=== PATIENT | male | born 1965 | race Caucasian/White ===

== ENCOUNTER 2017-05-30 21:55 | Emergency (ER) | payer BC, OTHER ==
[2017-05-30 23:00] LABS: #Eosinphils 0.1 thou/uL (0.0-0.7); #Lymphocytes 1.5 thou/uL (1.20-3.40); #Monocytes 0.5 thou/uL (0.11-0.59); #Neutrophils 4.4 thou/uL (1.40-6.50); %Basophils 0.4 % (0.0-1.0); %Eosinophils 1.3 % (0.0-10.0); %Lymphocytes 23.6 % (21.0-51.0); %Monocytes 7.4 % (0.0-10.0); Hematocrit 39.1 % (42.0-52.0); Mean Platelet Volume 8.1 fL (7.4-10.4); Red Blood Cell (RBC) Count 4.27 mill/uL (4.70-6.10); White Blood Cell (WBC) Count 6.5 thou/uL (4.8-10.8)
[2017-05-30 23:07] LABS: Bilirubin Negative (Negative); Blood, Urine Negative (Negative); Glucose, Urine (Dipstick) Negative (Negative); Ketone, Urine Negative (Negative); Nitrite Negative (Negative); Protein, Urine (Dipstick) Negative (Neg-Trace); Urobilinogen 0.2 mg/dL (0.2-1.0)
[2017-05-30 23:27] LABS: ALT (SGPT) 21 U/L (8-55); AST (SGOT) 17 U/L (5-34); Alkaline Phosphatase 74 U/L (40-150); Anion Gap 12 mmol/L (10-20); BUN (Urea Nitrogen) 14 mg/dL (8.4-25.7); Bilirubin, Total 0.3 mg/dL (0.2-1.2); CK (CPK) 263 U/L (30-200); Calc. Creatinine Clearance 0 mL/min (70-130); Calcium 9.2 mg/dL (7.8-10.44); Carbon Dioxide 26 mmol/L (22-29); Chloride 104 mmol/L (98-107); Estimated GFR-MDRD 90; Globulin 2.8 g/dL (2.4-3.5); Lipase 19 U/L (8-78); Magnesium 2.2 mg/dL (1.6-2.6); Protein, Total 7.1 g/dL (6.0-8.3)
[2017-05-30 23:31] LABS: Troponin I Less than 0.010 ng/mL (< 0.028)
--- NOTE | 2017-05-31 07:25 | RAD ---
1 VIEW CHEST: Date: 05/30/17 HISTORY: Hypertension. Chest pain. COMPARISON: None. FINDINGS: Portable upright chest demonstrates a normal cardiac silhouette. Pulmonary vessels and hilum are norm al. No consolidation or mass. No pneumothorax or osseous abnormalities. IMPRESSION: No acute cardiopulmonary process. POS: PPP
--- NOTE | 2017-06-25 20:53 | EKG ---
Test Reason : HYPERTENSION Blood Pressure : / mmHG Vent. Rate : 089 BPM Atrial Rate : 089 BPM P-R Int : 148 ms QRS Dur : 086 ms QT Int : 360 ms P-R-T Axes : 063 050 043 degrees QTc Int : 438 ms Normal sinus rhythm Normal ECG Confirmed by RUFINO MARIA, ATMEKA ([id number]), news editor WILFRIDO RIZZO ([id number] on 06/25/2017 8:52:29 PM Referred By: RUFINO Confirmed By:TAMEKA JOY MD
== END 2017-05-31 01:12 | disposition home or self-care (01) ==
LOC: ERS 21:55
DX: R00.0 Tachycardia, unspecified (principal); K21.9 Gastro-esophageal reflux disease without esophagitis; I10 Essential (primary) hypertension; Z79.899 Other long term (current) drug therapy
CPT/HCPCS: 36415; 71010; 80053; 81003; 82550; 82553; 83690; 83735; 83880; 84443; 84484; 85025; 85379; 93005

== ENCOUNTER 2018-07-21 12:30 | Outpatient (CLI) | payer BC ==
--- NOTE | 2018-07-21 16:15 | NM ---
RADIONUCLIDE HEPATOBILIARY SCAN AND GALLBLADDER EJECTION FRACTION: Date: 07/21/18 HISTORY: Abdominal pain. Bloating and nausea. FINDINGS: Early images show physiologic uptake of radiotracer throughout the hepatic parenchyma. Gallbladder fi rst seen at 90 minutes. Uptake is evident within the small bowel at 59 minutes. After administration of 8 oz of fatty meal and replacement of CCK, there is progressive excretion of radiotracer from the gallbladder to the small bowel. Ejection fraction calculated at 48%. IMPRESSION: Normal hepatobiliary scan and gallbladder ejection fraction. POS: SUKHWINDER
== END 2018-07-21 12:31 | disposition home or self-care (01) ==
LOC: NM 12:30
PROVIDERS: ATTEND Internal Medicine
DX: R10.13 Epigastric pain (principal); R14.0 Abdominal distension (gaseous); R11.0 Nausea
CPT/HCPCS: 78227; A9537

== ENCOUNTER 2018-08-13 18:29 | Emergency (ER) | payer BC ==
[2018-08-13 19:42] LABS: #Eosinphils 0.2 thou/uL (0.0-0.7); #Lymphocytes 1.7 thou/uL (1.20-3.40); #Monocytes 0.5 thou/uL (0.11-0.59); #Neutrophils 4.9 thou/uL (1.40-6.50); %Basophils 0.5 % (0.0-1.0); %Eosinophils 3.1 % (0.0-10.0); %Lymphocytes 23.1 % (21.0-51.0); %Neutrophils 66.4 % (42.0-75.0); Hemoglobin 14.6 g/dL (14.0-18.0); Mean Corpuscular HGB CONC 34.2 g/dL (32.0-36.0); Mean Corpuscular Hemoglobin 30.4 pg (27.0-31.0); Mean Corpuscular Volume 88.9 fL (78.0-98.0); Mean Platelet Volume 9.1 fL (7.4-10.4); Platelet Count 203 thou/uL (130-400); RBC Distribution Width 10.9 % (11.5-14.5); Red Blood Cell (RBC) Count 4.79 mill/uL (4.70-6.10); White Blood Cell (WBC) Count 7.3 thou/uL (4.8-10.8)
[2018-08-13 20:10] LABS: ALT (SGPT) 27 U/L (8-55); AST (SGOT) 21 U/L (5-34); Albumin 4.7 g/dL (3.5-5.0); Alkaline Phosphatase 72 U/L (40-150); Anion Gap 14 mmol/L (10-20); BUN (Urea Nitrogen) 14 mg/dL (8.4-25.7); Bilirubin, Total 0.5 mg/dL (0.2-1.2); Calc. Creatinine Clearance 0 mL/min (70-130); Calcium 9.9 mg/dL (7.8-10.44); Carbon Dioxide 25 mmol/L (22-29); Chloride 104 mmol/L (98-107); Estimated GFR-MDRD 86; Globulin 2.5 g/dL (2.4-3.5); Glucose 94 mg/dL (70-105); Potassium 4.1 mmol/L (3.5-5.1); Protein, Total 7.2 g/dL (6.0-8.3); Sodium 139 mmol/L (136-145)
--- NOTE | 2018-08-13 20:38 | CT ---
CT BRAIN: HISTORY: Intermittent dizziness, lightheadedness, and palpitations, lasting up to an hour. TECHNIQUE: Noncontrast enhanced CT images of the brain obtained. FINDINGS: The brain is unremarkable. No evidence of intracranial masses, hemorrhages, strokes, or contusions s een. The ventricles are of normal size. IMPRESSION: Normal CT brain. POS: LUISANA
== END 2018-08-13 20:59 | disposition home or self-care (01) ==
LOC: MERGE 18:29 → ERS 18:29
DX: R42 Dizziness and giddiness (principal); K58.9 Irritable bowel syndrome, unspecified; I10 Essential (primary) hypertension; E78.5 Hyperlipidemia, unspecified; F41.9 Anxiety disorder, unspecified; Z79.899 Other long term (current) drug therapy
CPT/HCPCS: 36415; 70450; 80053; 84484; 85025; 85379; 93005

== ENCOUNTER 2018-10-09 12:53 | Emergency (ER) | payer BC ==
[2018-10-09 14:00] LABS: #Eosinphils 0.1 thou/uL (0.0-0.7); #Lymphocytes 1.4 thou/uL (1.20-3.40); #Monocytes 0.5 thou/uL (0.11-0.59); #Neutrophils 4.3 thou/uL (1.40-6.50); %Basophils 0.7 % (0.0-1.0); %Eosinophils 1.3 % (0.0-10.0); %Lymphocytes 22.5 % (21.0-51.0); %Monocytes 7.4 % (0.0-10.0); %Neutrophils 68.1 % (42.0-75.0); Hemoglobin 13.1 g/dL (14.0-18.0); Mean Corpuscular HGB CONC 33.2 g/dL (32.0-36.0); Mean Corpuscular Hemoglobin 30.3 pg (27.0-31.0); Mean Corpuscular Volume 91.5 fL (78.0-98.0); Mean Platelet Volume 9.5 fL (7.4-10.4); Platelet Count 177 thou/uL (130-400); Red Blood Cell (RBC) Count 4.31 mill/uL (4.70-6.10); White Blood Cell (WBC) Count 6.3 thou/uL (4.8-10.8)
[2018-10-09 14:22] LABS: ALT (SGPT) 20 U/L (8-55); AST (SGOT) 16 U/L (5-34); Albumin 4.4 g/dL (3.5-5.0); Alkaline Phosphatase 67 U/L (40-150); Anion Gap 10 mmol/L (10-20); BUN (Urea Nitrogen) 14 mg/dL (8.4-25.7); Bilirubin, Total 0.6 mg/dL (0.2-1.2); Calc. Creatinine Clearance 0 mL/min (70-130); Calcium 9.2 mg/dL (7.8-10.44); Carbon Dioxide 29 mmol/L (22-29); Chloride 104 mmol/L (98-107); Estimated GFR-MDRD Greater than 90; Globulin 2.6 g/dL (2.4-3.5); Glucose 107 mg/dL (70-105); Potassium 3.8 mmol/L (3.5-5.1); Sodium 139 mmol/L (136-145)
--- NOTE | 2018-10-09 14:41 | CT ---
CT Brain WO Con History: [Nausea and weakness.] Comparison: CT brain on August 13, 2018 Findings: No acute hemorrhage or infarct. No midline shift or mass effect. Ventricular size and extra -axial CSF spaces are normal. The calvarium is intact. The paranasal sinuses and mastoids are clear. Impression: No acute intracranial abnormality.
--- NOTE | 2018-10-09 15:14 | RAD ---
CHEST 1 VIEW: Date: 10/09/18 HISTORY: Dyspnea. COMPARISON: 05/31/17. FINDINGS: Heart size and mediastinum are within normal limits. Lungs appear clear of any infiltrative process. No interval change. IMPRESSION: No active intrathoracic disease. POS: TPC
== END 2018-10-09 15:13 | disposition home or self-care (01) ==
LOC: ERS 12:53
DX: R11.0 Nausea (principal); R20.2 Paresthesia of skin; K21.9 Gastro-esophageal reflux disease without esophagitis; I10 Essential (primary) hypertension; K59.00 Constipation, unspecified; Z79.899 Other long term (current) drug therapy
CPT/HCPCS: 70450; 71045; 80053; 84484; 85025; 93005

== ENCOUNTER 2020-04-03 07:47 | Outpatient (CLI) | payer BC ==
--- NOTE | 2020-04-03 12:58 | NM ---
EXAM: Nuclear medicine gastric emptying COMPARISON: None HISTORY: Abdominal pain TECHNIQUE: A nuclear medicine gastric emptying exam was administered after administration of 2.2 mCi of technetium 99m sulfur colloid mixed with eggs. FINDINGS: No gastroesophageal reflux was seen during the examination. 30 minute emptying is 7%. 60 minutes emptying is 59%. 120 minute emptying is 83 %. 180 minute emptying is 96 % T1/2 of gastric emptying is 56 minutes. IMPRESSION: Normal gastric emptying exam
== END 2020-04-03 07:48 | disposition home or self-care (01) ==
LOC: NM 07:47
PROVIDERS: ATTEND Internal Medicine
DX: R10.13 Epigastric pain (principal); R11.0 Nausea
CPT/HCPCS: 78264; A9541

== ENCOUNTER 2020-12-16 19:00 | Outpatient (CLI) | payer BC | END 2020-12-16 19:01 | disposition home or self-care (01) | LOC: SLEEPLAB 19:00 | PROVIDERS: ATTEND Family Medicine | DX: G47.33 Obstructive sleep apnea (adult) (pediatric) (principal); R53.83 Other fatigue; R06.83 Snoring; G47.10 Hypersomnia, unspecified; G47.00 Insomnia, unspecified; I10 Essential (primary) hypertension | CPT/HCPCS: 95810 ==

== ENCOUNTER 2024-05-01 11:00 | Outpatient (CLI) | payer BC | END 2024-05-01 11:01 | disposition home or self-care (01) | LOC: PET 11:00 | PROVIDERS: ATTEND Radiology Radiation Oncology | DX: C61 Malignant neoplasm of prostate (principal); R91.8 Other nonspecific abnormal finding of lung field | CPT/HCPCS: 78815; A9552; A9595 ==

== ENCOUNTER 2025-01-18 09:35 | Outpatient (CLI) | payer BC | END 2025-01-18 09:36 | disposition home or self-care (01) | LOC: BICULT 09:35 | PROVIDERS: ATTEND Family Medicine | DX: R29.818 Other symptoms and signs involving the nervous system (principal) | CPT/HCPCS: 93880 ==

== ENCOUNTER 2025-05-21 15:10 | Outpatient (CLI) | payer BC | END 2025-05-21 15:11 | disposition home or self-care (01) | LOC: BICCT 15:10 | PROVIDERS: ATTEND Radiology Radiation Oncology | DX: R91.8 Other nonspecific abnormal finding of lung field (principal) | CPT/HCPCS: 71250 ==